=== PATIENT | female | born 1945 | race African-American/Black ===

== ENCOUNTER → 2018-01-03 | Outpatient (CLI) | payer OTHER ==
--- NOTE | 2018-01-05 18:45 | Diagnostic Imaging Report ---
Thyroid Scan with Multiple Uptakes Reason for exam: Nontoxic multinodular goiter Radiopharmaceutical: I-123 Abigail 0.285 mCi Report: After oral administration of I-123 Abigail, the 4-hour thyroid uptake of iodine is 10% (normal 3-13%). The patient did not return for the 24-hour thyroid uptake measurement. Images of the thyroid was obtained in the anterior and anterior oblique projections. The thyroid lobes appear symmetric in size. A small focal area of relatively increased tracer is uptake is seen in the lower pole of the left thyroid lobe. Otherwise, distribution of tracer is homogeneous throughout both lobes. The thyroid is in a normal anatomic location. A pyramidal lobe is seen. There is no aberrant functioning thyroid tissue seen in the area scanned. Impression: 1. Normal thyroid uptake of iodine. 2. Small hot nodule in the lower pole of the left thyroid lobe that is not functioning autonomously. Signed by: Dr. Micaela Fernandez M.D. on 01/05/2018 6:42 PM
== END ==
LOC: NM 08:35
PROVIDERS: ATTEND Family Medicine
DX: E04.2 Nontoxic multinodular goiter (principal)
CPT/HCPCS: 78014; A9516